=== PATIENT | female | born 1980 | race Caucasian/White ===

== ENCOUNTER → 2020-07-09 16:02 | Outpatient (BNVA) | payer OTHER, SELFPAY | PROVIDERS: Family Provider Nurse Practitioner Women's Health; Visit Provider Nurse Practitioner Women's Health | DX: Z31.9 Encounter for procreative management, unspecified (principal) | CPT/HCPCS: 83520 ==

== ENCOUNTER → 2022-06-27 14:29 | Outpatient (BNVA) | payer OTHER, SELFPAY | PROVIDERS: Family Provider Nurse Practitioner Women's Health; Visit Provider Nurse Practitioner Women's Health | DX: N97.9 Female infertility, unspecified (principal); D25.9 Leiomyoma of uterus, unspecified | CPT/HCPCS: 76830 ==

== ENCOUNTER 2022-07-07 11:28 | Outpatient (CLI) | payer OTHER, SELFPAY | END 2022-07-07 11:29 | disposition home or self-care (01) | LOC: LAB 11:30 | PROVIDERS: Family Provider Nurse Practitioner Women's Health; Visit Provider Nurse Practitioner Women's Health | DX: Z31.9 Encounter for procreative management, unspecified (principal) | CPT/HCPCS: 36415; 83520 ==

== ENCOUNTER 2022-11-03 11:26 | Outpatient (CLI) | payer OTHER, SELFPAY ==
[2022-11-03 12:37] LABS: HCG Quantitative 1.08 mIU/mL
== END 2022-11-03 11:27 | disposition home or self-care (01) ==
PROVIDERS: Visit Provider Obstetrics & Gynecology
DX: Z32.00 Encounter for pregnancy test, result unknown (principal)
CPT/HCPCS: 36415; 84702

== ENCOUNTER 2022-11-05 08:37 | Outpatient (CLI) | payer OTHER, SELFPAY | END 2022-11-05 08:38 | disposition home or self-care (01) | LOC: LAB 08:43 | PROVIDERS: Visit Provider Obstetrics & Gynecology | DX: Z32.00 Encounter for pregnancy test, result unknown (principal) | CPT/HCPCS: 36415; 84702 ==

== ENCOUNTER 2022-12-02 08:08 | Outpatient (CLI) | payer OTHER, SELFPAY ==
[2022-12-02 09:21] LABS: HCG Quantitative 1.01 mIU/mL
== END 2022-12-02 08:09 | disposition home or self-care (01) ==
PROVIDERS: Visit Provider Obstetrics & Gynecology
DX: Z32.01 Encounter for pregnancy test, result positive (principal)
CPT/HCPCS: 84702

== ENCOUNTER 2022-12-04 07:28 | Outpatient (CLI) | payer OTHER, SELFPAY | END 2022-12-04 07:29 | disposition home or self-care (01) | LOC: LAB 07:31 | PROVIDERS: Visit Provider Obstetrics & Gynecology | DX: Z32.01 Encounter for pregnancy test, result positive (principal) | CPT/HCPCS: 84702 ==

== ENCOUNTER 2022-12-29 07:55 | Outpatient (CLI) | payer OTHER, SELFPAY | END 2022-12-29 07:56 | disposition home or self-care (01) | LOC: LAB 07:58 | PROVIDERS: Visit Provider Obstetrics & Gynecology | DX: Z01.89 Encounter for other specified special examinations (principal) | CPT/HCPCS: 36415; 84702 ==

== ENCOUNTER 2022-12-31 07:55 | Outpatient (CLI) | payer OTHER, SELFPAY | END 2022-12-31 07:56 | disposition home or self-care (01) | PROVIDERS: Visit Provider Obstetrics & Gynecology | DX: Z01.89 Encounter for other specified special examinations (principal) | CPT/HCPCS: 84702 ==

== ENCOUNTER 2023-07-10 07:18 | Outpatient (CLI) | payer OTHER, SELFPAY ==
--- NOTE | 2023-07-10 07:25 | MM_ITS ---
WS: [id number] Bilateral screening 3D tomosynthesis digital mammogram, 07/10/2023 Clinical Data: Z12.31 - Encounter for screening mammogram for malignant ... Comparison: None. Findings: The breast parenchymal pattern shows heterogeneous density. No spiculated masses or clustered calcifi cations are seen. There are no secondary signs of carcinoma. Impression: 1. Negative bilateral mammogram with no prior exam for review. 2. Recommend annual screening mammograms. MM/[place] [id number] BIRADS: 1-Negative FOLLOW UP: 1 Year Follow-up The CAD store clerk checker was used.
== END 2023-07-10 07:19 | disposition home or self-care (01) ==
LOC: RAD 07:22
PROVIDERS: PCP Physician Assistant; Visit Provider Nurse Practitioner Women's Health
DX: Z12.31 Encounter for screening mammogram for malignant neoplasm of breast (principal)
CPT/HCPCS: 77063; 77067

== ENCOUNTER → 2024-07-07 09:00 | Outpatient (BNVA) | payer OTHER, SELFPAY | PROVIDERS: PCP Physician Assistant; Visit Provider Nurse Practitioner Women's Health | DX: Z01.419 Encounter for gynecological examination (general) (routine) without abnormal findings (principal) | CPT/HCPCS: 87624 ==

== ENCOUNTER 2024-07-15 08:00 | Outpatient (CLI) | payer OTHER, SELFPAY ==
--- NOTE | 2024-07-15 08:00 | MM_ITS ---
WS: [id number] Bilateral screening 3D tomosynthesis digital mammogram, 07/15/2024 Clinical Data: Z12.31 - Encounter for screening mammogram for malignant ... Comparison: 07/10/2023 Findings: The breast parenchymal pattern shows heterogeneous density. No spiculated masses or clustered calcifi cations are seen. There are no secondary signs of carcinoma. MM/[place] [id number] Impression: 1. Negative bilateral mammogram unchanged. 2. Recommend annual screening mammograms. BIRADS: 1-Negative FOLLOW UP: 1 Year Follow-up The CAD job checker was used.
== END 2024-07-15 08:01 | disposition home or self-care (01) ==
LOC: RAD 08:01
PROVIDERS: PCP Physician Assistant; Visit Provider Nurse Practitioner Women's Health
DX: Z12.31 Encounter for screening mammogram for malignant neoplasm of breast (principal); R92.333 Mammographic heterogeneous density, bilateral breasts
CPT/HCPCS: 77063; 77067; 87624

== ENCOUNTER 2025-08-22 08:33 | Outpatient (CLI) | payer OTHER, SELFPAY ==
--- NOTE | 2025-08-22 08:35 | MM_ITS ---
WS: [id number] BILATERAL 3D TOMOSYNTHESIS DIGITAL SCREENING MAMMOGRAPHY WITH CAD CLINICAL INFORMATION: SCREENING HISTORY: Screening mammogram. No current complaints. COMPARISON: 2023 TECHNIQUE: Bilateral CC and MLO views. FINDINGS: The breasts are composed of heterogeneous fibroglandular density tissue, which can limit the detection of small underlying mass lesions. Asymmetric density with slight architectural distortion posterior depth LEFT breast near the chest wall upper outer LEFT breast. Recommend further evaluation with LEFT breast diagnostic mammography and ultrasound if persistent. Unremarkable RIGHT breast. MM/MM [facility] tomosynthesis [id number] IMPRESSION: DENSITY: The breasts are heterogeneously dense, which may obscure small masses. BI-RADS: 0 - Incomplete: Need additional imaging evaluation FOLLOW UP: Need Additional Imaging Recommend further evaluation with LEFT breast diagnostic mammography and ultras ound if persistent.
== END 2025-08-22 08:34 | disposition home or self-care (01) ==
LOC: RAD 08:33
PROVIDERS: PCP Physician Assistant; Visit Provider Nurse Practitioner Women's Health
DX: Z12.31 Encounter for screening mammogram for malignant neoplasm of breast (principal); R92.323 Mammographic fibroglandular density, bilateral breasts; R92.333 Mammographic heterogeneous density, bilateral breasts; N64.89 Other specified disorders of breast
CPT/HCPCS: 77063; 77067

== ENCOUNTER 2025-09-21 13:29 | Outpatient (CLI) | payer OTHER, SELFPAY ==
--- NOTE | 2025-09-21 13:30 | MM_ITS ---
WS: [id number] LEFT 3D TOMOSYNTHESIS DIGITAL MAMMOGRAPHY WITH CAD CLINICAL INFORMATION: R92.8 - Other abnormal and inconclusive findings on diagn... HISTORY: Additional views COMPARISON: 08/22/2025 TECHNIQUE: 3 views of the left breast were obtained. FINDINGS: The left breast is composed of heterogeneous fibroglandular density tissue, which can limit the detection of small underlying mass lesions. Again seen is dense nodular asymmetric breast tissue upper outer LEFT breast which persists on spot compression views. Ultrasound described below. ULTRASOUND BREAST LEFT TECHNIQUE: Ultrasound left breast focused area of concern. CLINICAL INFORMATION: R92.8 - Other abnormal and inconclusive findings on diagn... FINDINGS: Ultrasound upper outer quadrant LEFT breast. Dense parenchymal tissue upper outer quadrant LEFT breast. No suspicious lesions to target for biopsy. 2 small incidental cysts measuring 4 to 5 mm at the 3 o'clock position 1 to 2 cm from the nipple. MM/MM diag LT tomosynthesis [id number] IMPRESSION: DENSITY: The breasts are heterogeneously dense, which may obscure small masses. BI-RADS: 2 - Benign FOLLOW UP: 1 Year Follow-up Recommend return to annual screening mammography.
--- NOTE | 2025-09-21 14:00 | US_ITS ---
WS: [id number] LEFT 3D TOMOSYNTHESIS DIGITAL MAMMOGRAPHY WITH CAD CLINICAL INFORMATION: R92.8 - Other abnormal and inconclusive findings on diagn... HISTORY: Additional views COMPARISON: 08/22/2025 TECHNIQUE: 3 views of the left breast were obtained. FINDINGS: The left breast is composed of heterogeneous fibroglandular density tissue, which can limit the detection of small underlying mass lesions. Again seen is dense nodular asymmetric breast tissue upper outer LEFT breast which persists on spot compression views. Ultrasound described below. ULTRASOUND BREAST LEFT TECHNIQUE: Ultrasound left breast focused area of concern. CLINICAL INFORMATION: R92.8 - Other abnormal and inconclusive findings on diagn... FINDINGS: Ultrasound upper outer quadrant LEFT breast. Dense parenchymal tissue upper outer quadrant LEFT breast. No suspicious lesions to target for biopsy. 2 small incidental cysts measuring 4 to 5 mm at the 3 o'clock position 1 to 2 cm from the nipple. US/US breast LT limited* [id number] IMPRESSION: DENSITY: The breasts are heterogeneously dense, which may obscure small masses. BI-RADS: 2 - Benign FOLLOW UP: 1 Year Follow-up Recommend return to annual screening mammography.
== END 2025-09-21 13:30 | disposition home or self-care (01) ==
LOC: RAD 13:31
PROVIDERS: PCP Physician Assistant; Visit Provider Nurse Practitioner Women's Health
DX: R92.8 Other abnormal and inconclusive findings on diagnostic imaging of breast (principal); R92.322 Mammographic fibroglandular density, left breast; R92.332 Mammographic heterogeneous density, left breast; N64.89 Other specified disorders of breast
CPT/HCPCS: 76642; 77061; 77063

== ENCOUNTER 2025-09-27 07:40 | Outpatient (CLI) | payer OTHER, SELFPAY ==
--- NOTE | 2025-09-27 08:11 | NM_ITS ---
WS: [email or web address] NUCLEAR MEDICINE 24 HOUR I-123 THYROID UPTAKE INDICATION: Multinodular goiter TECHNIQUE: I-123 24 HOUR THYROID UPTAKE WITH PLANAR IMAGING. 150.1 UCI BARRERA 123 COMPARISON: Ultrasound 08/15/2025 FINDINGS: Increased 24-hour thyroid uptake measuring 51.23% Ultrasound reviewed. Bilateral thyroid nodules noted on the prior ultrasound. Increased activity in the RIGHT lower dominant thyroid nodule compatible with hot nodule. Additional focal but less intense uptake in the LEFT upper thyroid nodule. Relatively cold nodule in the RIGHT mid to upper lobe can be further evaluated with FNA NORMAL 24H THRYOID UPTAKE 8-35% NM/NM thyroid uptake multi [id number] IMPRESSION: 1. Increased 24-hour uptake measuring 51.23%. Recommend correlation with thyro toxicosis and toxic multinodular goiter. 2. Relatively cold nodule in the RIGHT mid to upper lobe can be further evalua [place] with FNA
[2025-09-27 08:50] LABS: HCG Qualitative Urine. Negative (Negative)
== END 2025-09-27 07:41 | disposition home or self-care (01) ==
LOC: RAD 07:43
PROVIDERS: PCP Physician Assistant; Visit Provider Specialist
DX: Z01.89 Encounter for other specified special examinations (principal); E04.2 Nontoxic multinodular goiter; E05.80 Other thyrotoxicosis without thyrotoxic crisis or storm
CPT/HCPCS: 78014; 81025; A9516